=== PATIENT | female | born 1930 | race Caucasian/White ===

== ENCOUNTER → 2017-11-06 | Outpatient (CLI) | payer MEDICARE, BC ==
[~2017-11-06] MED LIST: ALBUTEROL0.83 MG/ML IH; ASPIRIN 81M81 MG/TA2 PO; ATROVENT I0.2 MG/1 M IH; BYSTOLIC20 MG PO; CENTRUM SILVER1 TA2 PO; LASIX 20MG TABL20 MG PO; LIPITOR20 MG PO; PRILOTC PO
== END ==
LOC: COL.VAS 11:00
DX: I37.1 Nonrheumatic pulmonary valve insufficiency (principal); J44.9 Chronic obstructive pulmonary disease, unspecified

== ENCOUNTER 2018-03-11 10:50 | Emergency (ER) | payer MEDICARE, BC ==
[~2018-03-11] VITALS: Ht 157.5 cm; Wt 51.8 kg
[2018-03-11] MEDS ORDERED: ULTRAM 50MG TAB50 MG PO (10:54)
[2018-03-11] MEDS ORDERED: LUTEIN20 M1 PO (10:55)
[2018-03-11] MEDS ORDERED: TYLENOL W/COD1 UDTAB PO (10:55)
[2018-03-11 10:56] VITALS: TEMP 97.8
[2018-03-11] MEDS ORDERED: KLOR-CON 1010 MEQ PO (10:57)
[2018-03-11 11:20] LABS: BASO % 0.4 % (0.0-2.0); EOS # 0.1 (0.0-0.7); EOS % 0.9 % (0-4.0); GRAN # 4.8 (1.4-6.5); GRAN % 70.5 % (42.2-75.2); HEMOGLOBIN 12.4 g/dl (12.5-16.0); LYMPH # 1.1 (1.2-3.4); LYMPH % 16.4 % (20.0-51.0); MEAN CELL VOLUME 85 fl (80.0-100.0); MEAN CORPUSCULAR HEMOGLOBIN 26 pg (27.0-31.0); MEAN CORPUSCULAR HGB CONC 31 g/dl (33.0-37.0); MEAN PLATELET VOLUME 11.1 fl (7.4-10.4); MONO # 0.8 (0.1-0.6); MONO % 11.7 % (1.7-9.3); PLATELET COUNT 183 K/mm3 (130-400); RED BLOOD COUNT 4.72 M/mm3 (4.10-5.30); REDCELL DISTRIBUTION WIDTH-CV 13.7 % (11.5-14.5)
[2018-03-11 11:27] LABS: PARTIAL THROMBOPLASTIN TIME 31.5 SECONDS (26.0-37.0)
[2018-03-11 11:32] LABS: ALBUMIN 4.2 gm/dL (3.5-5.0); BILIRUBIN,TOTAL 0.4 mg/dL (0.0-1.0); CALCIUM 9.3 mg/dL (8.4-10.2); CREATININE, serum 0.99 mg/dL (0.52-1.25); POTASSIUM 4.2 mmol/L (3.4-5.0); TOTAL PROTEIN 8.3 gm/dL (6.4-8.2)
[2018-03-11 11:34] LABS: ARTERIAL BLD GAS O2 SATURATION 97.4 % (92-100); ARTERIAL BLD GAS TCO2 CT 31.9; ARTERIAL BLOOD GAS BASE EXCESS 5.4 (-2-2); ARTERIAL BLOOD GAS HCO3 30.5 meq/L (22-26); ARTERIAL BLOOD GAS PCO2 46.7 mmHg (35-45); ARTERIAL BLOOD GAS PO2 95.5 mmHg (80-100); ARTERIAL BLOOD GAS pH 7.43 (7.35-7.45)
[2018-03-11 11:42] LABS: TROPONIN-I 0.023 ng/mL (0.000-0.034)
[2018-03-11 14:15] VITALS: BP 126/78; PULSE 88
== END 2018-03-11 14:17 | disposition home or self-care (01) ==
LOC: COL.ER 10:50
PROVIDERS: Family Medicine
DX: J44.1 Chronic obstructive pulmonary disease with (acute) exacerbation (principal); I10 Essential (primary) hypertension; E78.5 Hyperlipidemia, unspecified; Z79.82 Long term (current) use of aspirin

== ENCOUNTER 2019-01-08 20:45 | Inpatient (IN) | payer MEDICARE, BC ==
[~2019-01-08] VITALS: Ht 157.5 cm; Wt 67.4 kg
[~2019-01-08 20:45] MED LIST changes: +KLOR-CON 1010 MEQ PO; +LUTEIN20 M1 PO; +TYLENOL W/COD1 UDTAB PO; +ULTRAM 50MG TAB50 MG PO
[2019-01-08 21:48] LABS: BASO % 0.3 % (0.0-2.0); EOS # 0.1 (0.0-0.7); EOS % 1.3 % (0-4.0); GRAN # 7.3 (1.4-6.5); GRAN % 75.1 % (42.2-75.2); HEMATOCRIT 37.6 % (37.0-47.0); LYMPH # 1.4 (1.2-3.4); LYMPH % 14.4 % (20.0-51.0); MEAN CELL VOLUME 80 fl (80.0-100.0); MEAN CORPUSCULAR HEMOGLOBIN 24 pg (27.0-31.0); MEAN CORPUSCULAR HGB CONC 29 g/dl (33.0-37.0); MEAN PLATELET VOLUME 10.3 fl (7.4-10.4); MONO # 0.8 (0.1-0.6); MONO % 8.2 % (1.7-9.3); PLATELET COUNT 153 K/mm3 (130-400); PROTHROMBIN TIME 11.9 SECONDS (9.7-12.8); RED BLOOD COUNT 4.68 M/mm3 (4.10-5.30); REDCELL DISTRIBUTION WIDTH-CV 15.7 % (11.5-14.5)
[2019-01-08 21:52] LABS: ALBUMIN 3.8 gm/dL (3.5-5.0); BILIRUBIN,TOTAL 0.2 mg/dL (0.0-1.0); CALCIUM 9.3 mg/dL (8.4-10.2); CREATININE, serum 0.98 (0.52-1.25); POTASSIUM 4.6 mmol/L (3.4-5.0); TOTAL PROTEIN 7.5 gm/dL (6.4-8.2)
[2019-01-08] MEDS ORDERED: ZIAC 10/6.25M1 UDTAB PO (22:31)
--- NOTE | 2019-01-08 23:15 | NUR ---
Increased Nitro gtt due to chest pain. Please see pain assessment.
--- NOTE | 2019-01-08 23:45 | NUR ---
Pt report received by Stacy Ireland RN in ED.
[2019-01-09] VITALS (806 sets, daily range): BP systolic 70–166; BP diastolic 43–84; PULSE 98–129; TEMP 97.6–98.9; O2SAT 79–100
--- NOTE | 2019-01-09 00:15 | NUR ---
Pt assisted over X1 staff member with family in the waiting room. Pt in street clothes at this time. X3 staff members assisted pt into ICU bed 06 via slide board and assisted with changing pt into hospital gown. Pts aggitation increased with attempts to put support band across chest for fx shoulder. Pt started to scream at staff members and reported "I cant breathe". Orders for Morphine per emar was administered for reported pain prior to transfer into ICU bed from [facility]. Pt currently has glasses in place. Pt refused placement of catheter at this time and reported to nurse "we can put it in when I have to pee." Pt was notified of bedpan as an option and pt stated "I dont think I can use that". Assessment was completed. Family members notified that pt is requesting to see them although goodbyes were said and family went home after review of visiting hours, no castillo allowed on the unit and phone numbers of family obtained.
[2019-01-09 02:14] LABS: ARTERIAL BLD GAS O2 SATURATION 84.2 % (92-100); ARTERIAL BLD GAS TCO2 CT 35.1; ARTERIAL BLOOD GAS BASE EXCESS 6.6 (-2-2); ARTERIAL BLOOD GAS HCO3 33.3 meq/L (22-26); ARTERIAL BLOOD GAS PCO2 58.7 mmHg (35-45); ARTERIAL BLOOD GAS pH 7.37 (7.35-7.45)
--- NOTE | 2019-01-09 05:07 | NUR ---
PT PLACED ON BIPAP AND IS FINALLY SETTLING DOWN. WILL REPEATE A BLOOD GAS AN HOUR FROM NOW IF PATIENT LEAVES MASK ON AND DOESN'T CONTINUE TO HAVE BIG LEAKS WITH THE BIPAP. PT SEEMS TO BE MIHAI WELL AND IS ON THE DOCUMENTED SETTINGS. PT IS SATTING 100% ON 40% FI02. PT ON A SMALL MASK AND HUMIDIFICATION HAS BEEN APPLIED. WILL CONTINUE TO MONITOR AND ASSESS PATIENT. RN HAS BEEN NOTIFIED THAT BIPAP IS ON AND THAT ABG WILL BE REPEATED AT THIS TIME/
[2019-01-09 05:28] LABS: COLLECTION METHOD CLEAN CATCH
[2019-01-09 05:36] LABS: HEMOGLOBIN 10.1 g/dl (12.5-16.0); MEAN CELL VOLUME 81 fl (80.0-100.0); MEAN CORPUSCULAR HEMOGLOBIN 24 pg (27.0-31.0); MEAN CORPUSCULAR HGB CONC 29 g/dl (33.0-37.0); MEAN PLATELET VOLUME 11.7 fl (7.4-10.4); PLATELET COUNT 110 K/mm3 (130-400); RED BLOOD COUNT 4.27 M/mm3 (4.10-5.30); REDCELL DISTRIBUTION WIDTH-CV 15.9 % (11.5-14.5)
[2019-01-09 05:37] LABS: HEMATOCRIT 34.7 % (37.0-47.0)
[2019-01-09 05:40] LABS: ALBUMIN 3.5 gm/dL (3.5-5.0); BILIRUBIN,TOTAL 0.4 mg/dL (0.0-1.0); CALCIUM 8.7 mg/dL (8.4-10.2); CREATININE, serum 0.77 (0.52-1.25); POTASSIUM 4.2 mmol/L (3.4-5.0); TOTAL PROTEIN 6.9 gm/dL (6.4-8.2)
[2019-01-09 05:45] LABS: MUCOUS Present /lpf; PH 6 (5-8); SQUAMOUS EPITHELIAL None Seen /hpf; URINE APPEARANCE Clear; URINE BACTERIA None Seen /hpf; URINE BILIRUBIN Negative (NEGATIVE); URINE BLOOD Negative (NEGATIVE); URINE COLOR Yellow; URINE GLUCOSE Negative (NEGATIVE); URINE KETONE Negative (NEGATIVE); URINE LEUKOCYTE ESTERASE Negative (NEGATIVE); URINE NITRATE Negative (NEGATIVE); URINE PROTEIN(semi-quant) Negative (NEGATIVE); URINE RBC 0-2 /hpf; URINE UROBILINOGEN Negative (NEGATIVE)
[2019-01-09 05:47] LABS: PRE ALBUMIN 15.8 mg/dL (17.6-36.0)
[2019-01-09 05:52] LABS: PROTHROMBIN TIME 12.2 SECONDS (9.7-12.8)
[2019-01-09 06:23] LABS: ANISOCYTOSIS 1+; BAND 13 % (0-10); HYPOCHROMIA 2+; METAMYELOCYTE 1 % (0-0); NEUTROPHILS 76 % (42.0-75.2); PLATELET ESTIMATE DECREASED (NORMAL)
[2019-01-09 06:24] LABS: OVALOCYTES 1+
--- NOTE | 2019-01-09 07:11 | NUR ---
Bedside report received from GHISLAINE Diaz.
--- NOTE | 2019-01-09 07:20 | NUR ---
Morphine given as ordered by GHISLAINE Diaz for pain 04/21, patient repositioned at this time.
--- NOTE | 2019-01-09 07:55 | NUR ---
Sling applied to patient left arm, ice packs remain in place.
--- NOTE | 2019-01-09 08:03 | NUR ---
Spoke with pts daughter in lawara on the phone to review medication list. Pt is independent with taking care of medications at home so family member was able to provide medication list off the bottles available although reports that pt fills medications at the end of the month so unsure which ones will need to be refilled with no pill bottles available. Also knows that there were some medication changes present at last cardiology appt and is unsure which medications were affected.
--- NOTE | 2019-01-09 08:10 | NUR ---
Assessment performed, patient refused to allow this RN to take her socks off to assess her feet and place saurav hose on, patient also will not allow me to assess her backside. Bed alarm on for patient safety, fall precautions in place. Call light within reach.
[2019-01-09] MEDS ORDERED: PULMICORT0.5 MG/2 M IH (08:11)
[2019-01-09] MEDS ORDERED: ATACAND 16M16 MG/TAB PO (08:11)
[2019-01-09 08:29] LABS: ARTERIAL BLD GAS O2 SATURATION 88.3 % (92-100); ARTERIAL BLOOD GAS BASE EXCESS 8.4 (-2-2); ARTERIAL BLOOD GAS HCO3 35.1 meq/L (22-26); ARTERIAL BLOOD GAS PCO2 59.5 mmHg (35-45); ARTERIAL BLOOD GAS PO2 57.2 mmHg (80-100); ARTERIAL BLOOD GAS pH 7.39 (7.35-7.45)
--- NOTE | 2019-01-09 09:00 | NUR ---
Patient refused chest xray at this time, Dr. Hope aware.
--- NOTE | 2019-01-09 09:24 | NUR ---
Patient resting quietly in bed, call light within reach.
--- NOTE | 2019-01-09 09:57 | NUR ---
wind technician back to attempt chest xray at this time.
--- NOTE | 2019-01-09 10:17 | NUR ---
Family at bedside.
--- NOTE | 2019-01-09 11:05 | NUR ---
Dr. Casillas speaks with family regarding plan of care.
--- NOTE | 2019-01-09 11:10 | NUR ---
Phone consent received from son "Mehrdad" for surgery.
--- NOTE | 2019-01-09 12:12 | NUR ---
Patient taken to OR via bed, spoke with SUZANNE Marquez" on phone at this time, she states they will be back in 20 minutes.
--- NOTE | 2019-01-09 15:30 | NUR ---
Family at bedside. Patient awakens to name.
[2019-01-09 15:34] LABS: ARTERIAL BLD GAS TCO2 CT 29.2; ARTERIAL BLOOD GAS BASE EXCESS 3.2 (-2-2); ARTERIAL BLOOD GAS HCO3 27.8 meq/L (22-26); ARTERIAL BLOOD GAS PCO2 42.9 mmHg (35-45); ARTERIAL BLOOD GAS PO2 119.4 mmHg (80-100); ARTERIAL BLOOD GAS pH 7.43 (7.35-7.45)
--- NOTE | 2019-01-09 15:50 | NUR ---
Patient transferred to ICU# 6 via bed from PACU, intubated, with Jose Raul,RN, Nelsy,RN and MARITA Washburn at bedside. Rt at bedside placed patient on ventilator, assessment complete, left hip dressing CDI, ice pack applied to left hip, left arm remains in sling, ice pack applied to left shoulder. Matti hose applied, SCD's in place. Soft wrist restraint applied to right wrist. 14f OG placed, 60cm at lip to LIS. Patient became hypotensive, Dr. Cardona was called, new orders received.
--- NOTE | 2019-01-09 19:00 | NUR ---
Bedside report received from Amarilys Staley RN. Pt resting in bed on the ventilator at this time. Will open eyes to name and follow commands. Vent and OG tubes with IV pumps checked at this time.
--- NOTE | 2019-01-09 19:11 | NUR ---
Bedside report given to GHISLAINE Diaz, all lines/tubes and gtts verified at this time.
[2019-01-10] VITALS (1014 sets, daily range): BP systolic 79–123; BP diastolic 43–65; PULSE 84–127; TEMP 98.7–100.1; O2SAT 73–100
--- NOTE | 2019-01-10 05:00 | NUR ---
Not completing a sedation vacation due to pt being off sedation earlier this shift due to low BP.
--- NOTE | 2019-01-10 05:06 | NUR ---
NOT BEING DONE PT HAS NOT BEEN INTUBATED FOR 24 HOURS OR LONGER.
[2019-01-10 05:15] LABS: MEAN CELL VOLUME 81 fl (80.0-100.0); MEAN CORPUSCULAR HGB CONC 30 g/dl (33.0-37.0); MEAN PLATELET VOLUME 11.7 fl (7.4-10.4); PLATELET COUNT 113 K/mm3 (130-400); RED BLOOD COUNT 3.06 M/mm3 (4.10-5.30)
[2019-01-10 05:16] LABS: HEMATOCRIT 24.7 % (37.0-47.0); HEMOGLOBIN 7.3 g/dl (12.5-16.0); MEAN CORPUSCULAR HEMOGLOBIN 24 pg (27.0-31.0)
[2019-01-10 05:26] LABS: ALBUMIN 3.1 gm/dL (3.5-5.0); BILIRUBIN,TOTAL 0.2 mg/dL (0.0-1.0); CALCIUM 8.4 mg/dL (8.4-10.2); CREATININE, serum 1.26 (0.52-1.25); POTASSIUM 4.1 mmol/L (3.4-5.0); TOTAL PROTEIN 5.9 gm/dL (6.4-8.2)
[2019-01-10 05:39] LABS: ARTERIAL BLD GAS O2 SATURATION 97.8 % (92-100); ARTERIAL BLD GAS TCO2 CT 26.8; ARTERIAL BLOOD GAS HCO3 25.7 meq/L (22-26); ARTERIAL BLOOD GAS PCO2 36.3 mmHg (35-45); ARTERIAL BLOOD GAS PO2 116.9 mmHg (80-100); ARTERIAL BLOOD GAS pH 7.47 (7.35-7.45)
[2019-01-10 05:46] LABS: BAND 11 % (0-10); LYMPHOCYTE 3 % (20.0-51.0); NEUTROPHILS 82 % (42.0-75.2); PLATELET ESTIMATE NORMAL (NORMAL)
[2019-01-10 05:47] LABS: HYPOCHROMIA 1+; OVALOCYTES 1+
--- NOTE | 2019-01-10 07:00 | NUR ---
Bedside report provided to Diana Viera RN & Parul SCANLON. IV pumps assessed.
--- NOTE | 2019-01-10 07:34 | NUR ---
PT RECEIVED ON PREVIOUSLY DOCUMENTED SETTINGS. DECREASED FIO2 TO 30%; NO ADDITIONAL CHANGES MADE AT THIS TIME. PT DID WAKE UP DURING SUCTIONING AND ORAL CARE. PT PERFORMED A NIF WITH A -16 ON FIRST ATTEMPT. VITAL SIGNS STABLE. BBSH CLEAR WITH SLIGHTLY COARSE BASES. NO SVN INDICATED AT THIS TIME.
--- NOTE | 2019-01-10 10:52 | NUR ---
WANDA met with patient's son's, Erick. Patient currently lives at home with Mehrdad and his , Esperanza. Patient's PCP is Dr Burns and she obtains prescriptions from [facility]. Patient uses a walker and O2 at home. No home health services are reported. Patient had surgery to repair her fractured hip and is currently intubated. Tacos and Mehrdad met with Dr Arceo this morning. If patient does not progress by Thursday, she will likely get a trach and peg tube placed early next week. Patient's family understands if this happens, patient will likely be transfered to an LTACH. SW did discuss options if patient is starts to show progress and is able to be extubated. SW reported that if patient is medically cleared to discharge from the hospital, she will likely require post acute rehab in a facility. SW explained the difference between SNF and IPR. Patient's family reports that if she is able to discharge to a post acute rehab facility, she will likely need to go to a fpc because they do not feel that patient would be able to handle 3 hours of therapy 5 days a week. Patient's family also inquired what would happen if patient was not able to hanle any type of post acute rehab and she needed to be placed in a fpc care facility. SW reported that LTC is an option as well but patient's insurance does not cover LTC. WANDA reported that if patient's able, a financial counselor can visit with patient and family to complete a Medicaid application. SW answered all of patient's sons questions and also provided her phone number if they have any questions in the future. Patient's son also reported that patient have a DPOA-HC and Dr Hernandes office has a copy. WANDA requested Dr Hernandes office fax the DPOA-HC for patient's chart. SW will continue to follow and assist with any discharge needs.
[2019-01-10 11:53] LABS: MAGNESIUM 1.7 mg/dL (1.6-2.3); PHOSPHOROUS 2.4 mg/dL (2.5-4.5)
--- NOTE | 2019-01-10 13:20 | NUR ---
INCREASED FIO2 AT THIS TIME DUE TO A DROP IN SPO2.
--- NOTE | 2019-01-10 15:50 | NUR ---
WANDA rec'd a voicemail from Dr Burns's nurse, Aleah. She reported they do not have a copy of the DPOA-HC on file. WANDA contacted patient's son Mehrdad. He reports he will bring a copy to the hospital for patient's chart.
[2019-01-10 16:41] LABS: ARTERIAL BLD GAS O2 SATURATION 97.6 % (92-100); ARTERIAL BLD GAS TCO2 CT 30.4; ARTERIAL BLOOD GAS BASE EXCESS 5.2 (-2-2); ARTERIAL BLOOD GAS HCO3 29.2 meq/L (22-26); ARTERIAL BLOOD GAS PCO2 40.4 mmHg (35-45); ARTERIAL BLOOD GAS PO2 110.1 mmHg (80-100); ARTERIAL BLOOD GAS pH 7.48 (7.35-7.45)
[2019-01-10 16:52] LABS: HEMATOCRIT 20.8 % (37.0-47.0); HEMOGLOBIN 6.5 g/dl (12.5-16.0)
--- NOTE | 2019-01-10 17:15 | NUR ---
DECREASED FI02 AT THIS TIME FROM 45% TO 40% DUE TO 100% SPO2
--- NOTE | 2019-01-10 17:43 | NUR ---
PT IS IN PAV+ MODE WITH 70% WORKLOAD AT THIS TIME. DR. PHELPS AT BEDSIDE.
--- NOTE | 2019-01-10 19:00 | NUR ---
Bedside report received from Diana Viera RN. Pts son and daughter in law at bedside during this time.
[2019-01-11] VITALS (829 sets, daily range): BP systolic 86–147; BP diastolic 43–81; PULSE 73–110; TEMP 97.5–100.1; O2SAT 88–100
--- NOTE | 2019-01-11 03:21 | NUR ---
Increased TF to 25 ml/hr per order.
[2019-01-11 05:42] LABS: MEAN CELL VOLUME 80 fl (80.0-100.0); MEAN CORPUSCULAR HGB CONC 31 g/dl (33.0-37.0); MEAN PLATELET VOLUME 11.6 fl (7.4-10.4); PLATELET COUNT 89 K/mm3 (130-400); RED BLOOD COUNT 3.35 M/mm3 (4.10-5.30)
[2019-01-11 05:44] LABS: HEMATOCRIT 26.8 % (37.0-47.0); HEMOGLOBIN 8.4 g/dl (12.5-16.0); MEAN CORPUSCULAR HEMOGLOBIN 25 pg (27.0-31.0)
[2019-01-11 05:52] LABS: ARTERIAL BLD GAS O2 SATURATION 97.1 % (92-100); ARTERIAL BLOOD GAS BASE EXCESS 1.8 (-2-2); ARTERIAL BLOOD GAS HCO3 26.6 meq/L (22-26); ARTERIAL BLOOD GAS PCO2 42.8 mmHg (35-45); ARTERIAL BLOOD GAS PO2 105.7 mmHg (80-100); ARTERIAL BLOOD GAS pH 7.41 (7.35-7.45)
[2019-01-11 05:56] LABS: CALCIUM 8.2 mg/dL (8.4-10.2); CREATININE, serum 1.09 (0.52-1.25); MAGNESIUM 1.9 mg/dL (1.6-2.3); POTASSIUM 4.9 mmol/L (3.4-5.0)
[2019-01-11 06:14] LABS: ANISOCYTOSIS 1+; BAND 12 % (0-10); HYPOCHROMIA 1+; LYMPHOCYTE 1 % (20.0-51.0); NEUTROPHILS 82 % (42.0-75.2); PLATELET ESTIMATE DECREASED (NORMAL)
[2019-01-11 06:15] LABS: MICROCYTOSIS 1+; OVALOCYTES 1+
--- NOTE | 2019-01-11 07:25 | NUR ---
Bedside report received from GHISLAINE Diaz.
--- NOTE | 2019-01-11 07:30 | NUR ---
Bedside report provided to Amarilys Staley RN.
--- NOTE | 2019-01-11 08:10 | NUR ---
PT ON PAV+ INITIALLY STARTED AT 70% DECRESED TO 60% PER DR PHELPS
--- NOTE | 2019-01-11 08:46 | NUR ---
Dr. Arceo here to talk with family.
--- NOTE | 2019-01-11 08:56 | NUR ---
Tube feeds turned off at this time, Propofol gtt turned off at this time.
--- NOTE | 2019-01-11 09:30 | NUR ---
SW attended clinical rounds. Patient will be extubated today. SW will continue to follow.
[2019-01-11 10:01] LABS: ARTERIAL BLD GAS O2 SATURATION 98.3 % (92-100); ARTERIAL BLOOD GAS HCO3 28.6 meq/L (22-26); ARTERIAL BLOOD GAS PCO2 43.5 mmHg (35-45); ARTERIAL BLOOD GAS pH 7.44 (7.35-7.45)
[2019-01-11 10:05] LABS: ARTERIAL BLOOD GAS PO2 137.3 mmHg (80-100)
--- NOTE | 2019-01-11 10:27 | NUR ---
Patient extubated to 3L/NC, sats 94%.
--- NOTE | 2019-01-11 10:27 | NUR ---
ABG RESULTS GIVEN TO DR. PHELPS. PT HAS BEEN ON CPAP TRIAL FOR MOST OF MORNING. ORDER TO EXTUBATE GIVEN. PT EXTUBATED TO 3LNC. PT SUCTIONED PRIOR TO EXTUBATION FOR MODERATE AMOUNT OF THICK ANNE/BEIGE SECRETIONS. NO STRIDOR AUSCULTATED. NO DISTRESS NOTED AT THIS TIME.
--- NOTE | 2019-01-11 10:45 | NUR ---
Patient self suctions with timo.
--- NOTE | 2019-01-11 13:00 | NUR ---
PT in to work with patient.
--- NOTE | 2019-01-11 14:00 | NUR ---
Patient continues to self suction, leaves marieuer in mouth, even after continued discussion that is making her mouth dry and bloody.
--- NOTE | 2019-01-11 14:15 | NUR ---
Patient with increased anxiety, sats 88%, O2 increased to 5L/NC. Patient requesting "something for anxiety." Dr. Arceo was called, new orders received.
--- NOTE | 2019-01-11 14:25 | NUR ---
Ativan po given, patient coughs and sputters with water given. Dr. Arceo notified, orders for speech consult received.
--- NOTE | 2019-01-11 15:42 | NUR ---
ST Fernanda in room for assessment.
--- NOTE | 2019-01-11 15:56 | NUR ---
Speech therapy here, patient coughs after each ice chip given, recommend continue NPO, and reevaluate tomorrow.
--- NOTE | 2019-01-11 16:05 | NUR ---
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
--- NOTE | 2019-01-11 16:32 | NUR ---
Family at bedside, update given on speech eval.
--- NOTE | 2019-01-11 19:17 | NUR ---
Bedside report given to GHISLAINE Armstrong.
--- NOTE | 2019-01-11 19:36 | NUR ---
RECEIVED REPORT FROM GHISLAINE GARCIA.
--- NOTE | 2019-01-11 22:00 | NUR ---
gave patient a bed bath. patient refused to change her gown and bed linens. patient was upset and agitated. gave patient a few minutes to collect her self and calm down before proceeding with nightly cares.
[2019-01-12] VITALS (763 sets, daily range): BP systolic 116–157; BP diastolic 49–75; PULSE 70–122; TEMP 97.6–98.6; O2SAT 75–100
[2019-01-12 05:46] LABS: MEAN CELL VOLUME 79 fl (80.0-100.0); MEAN CORPUSCULAR HGB CONC 31 g/dl (33.0-37.0); MEAN PLATELET VOLUME 11.1 fl (7.4-10.4); PLATELET COUNT 115 K/mm3 (130-400); RED BLOOD COUNT 3.54 M/mm3 (4.10-5.30); REDCELL DISTRIBUTION WIDTH-CV 16.1 % (11.5-14.5)
[2019-01-12 05:49] LABS: HEMOGLOBIN 8.8 g/dl (12.5-16.0); MEAN CORPUSCULAR HEMOGLOBIN 25 pg (27.0-31.0)
[2019-01-12 06:05] LABS: CALCIUM 8.4 mg/dL (8.4-10.2); CREATININE, serum 0.66 (0.52-1.25); MAGNESIUM 1.9 mg/dL (1.6-2.3); PHOSPHOROUS 2.5 mg/dL (2.5-4.5)
[2019-01-12 06:06] LABS: BAND 11 % (0-10); LYMPHOCYTE 4 % (20.0-51.0); METAMYELOCYTE 1 % (0-0); NEUTROPHILS 83 % (42.0-75.2)
[2019-01-12 06:08] LABS: ANISOCYTOSIS 1+; HYPOCHROMIA 1+
[2019-01-12 06:09] LABS: OVALOCYTES 1+
--- NOTE | 2019-01-12 07:03 | NUR ---
gave report to gilberto gilbert.
--- NOTE | 2019-01-12 07:20 | NUR ---
Bedside report received from GHISLAINE Armstrong.
--- NOTE | 2019-01-12 07:30 | NUR ---
Eri, ST here to assess patient.
--- NOTE | 2019-01-12 10:06 | NUR ---
PT here to work with patient.
--- NOTE | 2019-01-12 11:13 | NUR ---
SW attended clinical rounds. Patient is doing well and will move upstairs to the surgical floor later today. SW met with patient about post acute rehab. SW explained SNF vs IPR. Patient would like to review medicare.gov resource list before signing a choice form. SW inquired if patient would like SW to speak with her son about options. Patient reported she does not want SW to contact her son at this time. SW will follow up with patient later today.
--- NOTE | 2019-01-12 11:17 | NUR ---
Fernanda,Speech therapy in working with patient.
--- NOTE | 2019-01-12 12:32 | NUR ---
WANDA met with patient and son, Mehrdad, about post acute rehab choices. Patient and son chose 1. I[facility] and 2. [facility]. Choice form was signed by Mehrdad per patient request. WANDA informed [facility] director and contacted and faxed referral to [facility].
--- NOTE | 2019-01-12 14:38 | NUR ---
PT in working with patient.
--- NOTE | 2019-01-12 15:30 | NUR ---
Patient resting quietly in bed with eyes closed, respirations even and non-labored, call light within reach.
--- NOTE | 2019-01-12 18:10 | NUR ---
Patient sitting up in bed, eating dinner.
--- NOTE | 2019-01-12 19:51 | NUR ---
Bedside report given to GHISLAINE Duke.
[2019-01-13] VITALS (359 sets, daily range): BP systolic 126–145; BP diastolic 59–74; PULSE 60–77; TEMP 97.9–98.3; O2SAT 92–100
--- NOTE | 2019-01-13 01:30 | NUR ---
Requesting a snack; provided chocolate pudding and ate 100%. Coughed a few times after finishing. Able to use the oral suction independently when needed and no further issues noted. Offered to reposition at this time. Stated that she was comfortable and did not wish to reposition. Will continue to monitor.
--- NOTE | 2019-01-13 04:26 | NUR ---
Resting in bed with eyes shut; no concerns at this time.
[2019-01-13 05:52] LABS: GRAN # 7.8 (1.4-6.5); GRAN % 87.1 % (42.2-75.2); LYMPH # 0.3 (1.2-3.4); LYMPH % 3.8 % (20.0-51.0); MEAN CELL VOLUME 81 fl (80.0-100.0); MEAN CORPUSCULAR HGB CONC 31 g/dl (33.0-37.0); MEAN PLATELET VOLUME 10.9 fl (7.4-10.4); MONO # 0.8 (0.1-0.6); MONO % 8.7 % (1.7-9.3); PLATELET COUNT 148 K/mm3 (130-400); RED BLOOD COUNT 3.34 M/mm3 (4.10-5.30); REDCELL DISTRIBUTION WIDTH-CV 16.8 % (11.5-14.5)
[2019-01-13 05:55] LABS: HEMATOCRIT 27.1 % (37.0-47.0); HEMOGLOBIN 8.4 g/dl (12.5-16.0); MEAN CORPUSCULAR HEMOGLOBIN 25 pg (27.0-31.0)
[2019-01-13 06:11] LABS: CALCIUM 8.3 mg/dL (8.4-10.2); CREATININE, serum 0.82 (0.52-1.25); POTASSIUM 4.6 mmol/L (3.4-5.0)
--- NOTE | 2019-01-13 08:00 | NUR ---
Shift assessment complete at this time. Plan of care reviewed at bedside with patient. Additional time taken to address any other needs or concerns. Bed in low position, call light within reach. Denies pain or any other discomfort. Vitals stable at this time. Will continue to monitor.
--- NOTE | 2019-01-13 13:05 | NUR ---
Received patient per bed from ICU. O2 on at 3L/ nasal cannula. Denies pain. Left arm in sling. Left hip aquacell dressing CDI. CMS intact.
--- NOTE | 2019-01-13 14:45 | NUR ---
[place] given for c/o back pain. Repositioned in bed with assist.
--- NOTE | 2019-01-13 18:00 | NUR ---
Denies need to void. Denies pain. Repositioned in bed. Family here.
--- NOTE | 2019-01-13 19:00 | NUR ---
REPORT RECEIVED FROM CATRACHO MOMIN RN. PT A&O BUT VERY GRUMPY. HX COPD. HOB ELEVATED. O2 3LNC. SL LABORED RESP. ASKING FOR A RT TX. CALLED RT. LT ARM READJUSTED IN SLING TO PROPER PLACEMENT. PT HISSES AND YELLS OUT. ALLOWED PT TO CALM. PILLOWS UNDER LT ARM FOR SUPPORT. RADIAL PULSE PRESENT. BRUISING AND SWELLING NOTED. DENIED NEED FOR PAIN MED. PT HAS NOT VOIDED SINCE F/C DC'D EARLIER TODAY. PT DENIES FULL BLADDER AT THIS TIME. CALL LIGHT IN REACH. BED ALARM SET.
--- NOTE | 2019-01-13 20:36 | NUR ---
PT STATED SHE WAS FEELING SHORT OF BREATH AND CALLED RN FOR A PRN BREATHING TREATMENT. THEREFORE A PRN DUONEB WAS GIVEN AND PT IS FINE AND MIHAI WELL WITH NO DISTRESS NOTED. WILL CONTINUE TO MONITOR AND ASSESS PT.
--- NOTE | 2019-01-13 20:48 | NUR ---
PT RECEIVED RT TX. AGREED TO PAIN MED. GAVE NORCO 1. MEDS CRUSHED IN PUDDING. PT RELATED RT TX WAS NOT EFFECTIVE. NOTIFIED RT. WILL COME BACK AND PROVIDE ANOTHER TX. PT RELATES SHE MIGHT HAVE TO VOID AND BM. AGREED TO ALLOW PAIN MED START TO WORK AND 2 STAFF WOULD HELP TO BSC.
[2019-01-14 00:40] VITALS: BP 165/74; PULSE 70; TEMP 97.7
--- NOTE | 2019-01-14 04:23 | NUR ---
PT HAS RESTED WELL THIS SHIFT. O2 3LNC. BECOMES DYSPNEIC WITH ANY ACTIVITY BUT RECOVERS WITHI A FEW MINUTES.
[2019-01-14 04:54] VITALS: BP 160/70; PULSE 73; TEMP 98.1
[2019-01-14 06:07] LABS: BASO % 0.1 % (0.0-2.0); EOS # 0.1 (0.0-0.7); EOS % 1.3 % (0-4.0); GRAN # 7.6 (1.4-6.5); GRAN % 76.3 % (42.2-75.2); LYMPH # 0.8 (1.2-3.4); LYMPH % 7.8 % (20.0-51.0); MEAN CELL VOLUME 81 fl (80.0-100.0); MEAN CORPUSCULAR HGB CONC 30 g/dl (33.0-37.0); MEAN PLATELET VOLUME 11.7 fl (7.4-10.4); MONO # 1.4 (0.1-0.6); MONO % 13.8 % (1.7-9.3); PLATELET COUNT 184 K/mm3 (130-400); RED BLOOD COUNT 3.53 M/mm3 (4.10-5.30); REDCELL DISTRIBUTION WIDTH-CV 17.1 % (11.5-14.5)
--- NOTE | 2019-01-14 06:08 | NUR ---
PT UP WITH ASSIST TO BSC. HAD LG LOOSE BROWN STOOL AND INCON IN BED OF STOOL. SEE MAR FOR NORCO GIVEN FOR LT HIP PAIN. NEW MEPILEX PLACED TO UPPER BACK. STAGE 2 WOUND. COCYX HAS NO BREAKDOWN.
[2019-01-14 06:16] LABS: CALCIUM 8.3 mg/dL (8.4-10.2); CREATININE, serum 0.78 (0.52-1.25); MAGNESIUM 2.1 mg/dL (1.6-2.3); POTASSIUM 4.2 mmol/L (3.4-5.0)
[2019-01-14 06:26] LABS: HEMATOCRIT 28.7 % (37.0-47.0); HEMOGLOBIN 8.7 g/dl (12.5-16.0); MEAN CORPUSCULAR HEMOGLOBIN 25 pg (27.0-31.0)
[2019-01-14 08:48] VITALS: BP 141/61; PULSE 71; TEMP 97.8
--- NOTE | 2019-01-14 09:30 | NUR ---
Patient alert and oriented, answers questions appropriately. Agitated and uncomfortable this a.m. See assessment. LUE in sling, neuros intact, pulses palpable. Limited movement to LUE. LLE with neuros intact, pulses palpable. No c/o numbness or tingling to LLE. Incision to LLE with aquacel CDI. FWB. C/o pain 02/19 to LUE. No other c/o at this time.
--- NOTE | 2019-01-14 11:18 | NUR ---
[facility]-WANDA contacted [facility] Director and they are continuing to follow the pt's progress.
--- NOTE | 2019-01-14 11:19 | NUR ---
[facility]-WANDA contacted Dasha from [facility]. WANDA was informed [facility] would like to continue to follow the pt's progress. SW to fax updates. WADNA will continue to follow.
[2019-01-14 12:18] VITALS: BP 110/57; PULSE 63; TEMP 97.9
[2019-01-14] MEDS ORDERED: PULMICORT0.5 MG/2 M IH (13:32)
[2019-01-14] MEDS ORDERED: BROVANA15 MCG/2 M IH (13:33)
[2019-01-14 16:38] VITALS: BP 138/66; PULSE 80; TEMP 97.9
--- NOTE | 2019-01-14 19:15 | NUR ---
Pt resting with HOB elevated. Pt c/o L shoulder/hip pain 01/19. She is requesting PRN pain medication and repositioning. Respirations even and unlabored. Lungs clear, bases diminished. Abdomen soft, nontender. BS+. O2@3L via NC. Aquacell to L hip CDI. L arm sling in place. SCDS amd TEDS to BLE. CMS intact. Pedal pulses equal, 1+. No further needs at this time. Will continue to monitor.
--- NOTE | 2019-01-14 19:20 | NUR ---
HS and PRN meds given crushed in pudding. Well tolerated by patient. Pt repositioned to comfort. No futher needs noted.
[2019-01-14 19:30] VITALS: BP 130/57; PULSE 74; TEMP 97.3
[2019-01-15] VITALS (7 sets, daily range): BP systolic 109–145; BP diastolic 33–99; PULSE 56–89; TEMP 97.5–97.9
--- NOTE | 2019-01-15 02:15 | NUR ---
PT STATED THAT HER LUNGS FELT TIGHT AND THAT SHE NEEDED ANOTHER BREATHING TRTEATMENT AFTER HER SCHEDULED TREATMENT WAS OVER. PTS BREATH SOUNDS ARE CLEAR AND NO DISTRESS IS NOTED AT THIS TIME. WILL CONTINUE TO MONITOR AND ASSESS.
--- NOTE | 2019-01-15 05:30 | NUR ---
AM labs drawn from pts DANICA PICC line. PICC has great blood return. Pt denies needs this morning. Pt was up x1 to BSC last night.
[2019-01-15 05:51] LABS: BASO % 0.1 % (0.0-2.0); EOS # 0.2 (0.0-0.7); EOS % 2.4 % (0-4.0); GRAN # 6.2 (1.4-6.5); GRAN % 75.6 % (42.2-75.2); HEMATOCRIT 28.8 % (37.0-47.0); HEMOGLOBIN 8.6 g/dl (12.5-16.0); LYMPH # 0.7 (1.2-3.4); LYMPH % 8.6 % (20.0-51.0); MEAN CELL VOLUME 82 fl (80.0-100.0); MEAN CORPUSCULAR HEMOGLOBIN 25 pg (27.0-31.0); MEAN CORPUSCULAR HGB CONC 30 g/dl (33.0-37.0); MEAN PLATELET VOLUME 11.3 fl (7.4-10.4); MONO % 12.6 % (1.7-9.3); PLATELET COUNT 185 K/mm3 (130-400); REDCELL DISTRIBUTION WIDTH-CV 17.3 % (11.5-14.5)
[2019-01-15 06:00] LABS: CALCIUM 8.4 mg/dL (8.4-10.2); CREATININE, serum 0.75 (0.52-1.25); POTASSIUM 4.5 mmol/L (3.4-5.0)
--- NOTE | 2019-01-15 07:06 | NUR ---
Report from GHISLAINE Denton. Pt asleep in bed, even resps, eyes closed. O2@3L/NC. SCDs on. Head elevated at 30*. Yellow gown on.
--- NOTE | 2019-01-15 10:22 | NUR ---
WANDA faxed updates to [facility]. WANDA to continue to follow.
--- NOTE | 2019-01-15 11:08 | NUR ---
Notified pharmacy that pt had two orders for protonix and needs to take pills crushed in puree at this time. They changed order for granules; however, pt refuses to take with applejuice or applesauce. Pt amb to BR with one assist with gait belt, second person for standby assist. On O2/NC at 3LPM. Removed tele patches. Sling to LUE. Pt passing flatus. Aquacel dressing to L hip with minimal drainage, but top of dressing is peeling down. Pt took morning meds crushed in vanilla pudding. Assisted with ordering lunch, needed to make some food pureed as kitchen unable to provide mech soft.
--- NOTE | 2019-01-15 11:37 | NUR ---
PHILIP Floyd and this nurse assisted pt with clifton MCLEAN, new yellow gown, yellow gripper socks. Pt continent of B/B. Coccyx reddened but blanches. Replaced mepilex dressing to mid back of superficial opening approx 4 cm. Replaced surgical aquacel dressing as it was peeling off. Incision edges approximated with small amount of drainage. Steris peeled off with dressing. Pt alba well. Requested to return to chair. Positioned with pillows.
--- NOTE | 2019-01-15 15:28 | NUR ---
Hannah, at [facility], reports that they can accept the patient for a skilled stay. SW to inform the patient and will continue to follow.
--- NOTE | 2019-01-15 17:35 | NUR ---
Pt displeased with limits of [facility] soft diet, edu about diet order until cleared by Speech after swallow study Thursday. Assisted with ordering supper and breakfast for tomorrow, also sent pt's food likes to kitchen. Pt in bed with airmattress in place, SCDs and O2, call lt in reach, sling to RUE.
--- NOTE | 2019-01-15 18:18 | NUR ---
Encouraged pt to use IS, edu on proper technique but has difficulty with breathing too fast.
--- NOTE | 2019-01-15 19:13 | NUR ---
Report to GHISLAINE Soto.
[2019-01-16 04:15] VITALS: BP 146/51; PULSE 77; TEMP 97.6
--- NOTE | 2019-01-16 06:33 | NUR ---
Patient up to the chair after toileting this morning. States pain 7/10 and PRN [place] (2 tab) given. Relief noted. Patient stated she feels like she needs to have a bowel movement, but wasn't able to. She refused her HS stool softner last evening. Education provided on this. Will report off to day shift.
[2019-01-16 07:05] LABS: BASO % 0.1 % (0.0-2.0); EOS # 0.1 (0.0-0.7); GRAN # 8.4 (1.4-6.5); GRAN % 82.4 % (42.2-75.2); LYMPH # 0.7 (1.2-3.4); LYMPH % 6.8 % (20.0-51.0); MEAN CELL VOLUME 83 fl (80.0-100.0); MEAN CORPUSCULAR HGB CONC 30 g/dl (33.0-37.0); MEAN PLATELET VOLUME 10.4 fl (7.4-10.4); MONO # 0.9 (0.1-0.6); MONO % 8.6 % (1.7-9.3); PLATELET COUNT 193 K/mm3 (130-400); RED BLOOD COUNT 3.33 M/mm3 (4.10-5.30); REDCELL DISTRIBUTION WIDTH-CV 17.5 % (11.5-14.5)
[2019-01-16 07:09] LABS: CALCIUM 8.2 mg/dL (8.4-10.2); CREATININE, serum 0.71 (0.52-1.25); POTASSIUM 4.8 mmol/L (3.4-5.0)
[2019-01-16 07:29] LABS: HEMATOCRIT 27.6 % (37.0-47.0); HEMOGLOBIN 8.3 g/dl (12.5-16.0); MEAN CORPUSCULAR HEMOGLOBIN 25 pg (27.0-31.0)
--- NOTE | 2019-01-16 07:42 | NUR ---
Report from GHISLAINE Soto. Pt one assist to boost up in chair and requested to recline back slightly for eating, positioned back and LUE on pillows. SCDs to BLE, call lt in reach, O2/NC. Alert, [place], pleasant. Set up assist for breakfast. BLE elevated in recliner.
[2019-01-16 07:50] VITALS: BP 102/48; PULSE 80; TEMP 97.4
--- NOTE | 2019-01-16 11:07 | NUR ---
Pt took pills crushed in van pudding. Has anxiety around cares and taking pills and fear of pain from moving LUE, verbalizes that she appreciates taking time to explain things and being patient. C/o PT this morning not communicating with her, misunderstanding of not wanting to participate in PT today, but pt called and asked when PT would come back. F/u with PT and PT returned for treatment. Yellow gown and gripper socks in place. Mepilex to mid back intact, surgical aquacel dressing intact to L hip, scant shadowing, TEDS to BLE, had SCDs on in chair. Air mattress to bed. Pillows for comfort. O2 at 3LNC and SOA with any exertion. Had some coughing during med administration. LUE in sling, pt has good CMS.
[2019-01-16 11:18] VITALS: BP 122/41; PULSE 86; TEMP 97.8
--- NOTE | 2019-01-16 13:11 | NUR ---
Family and friends visiting. franc Mckenna and pillow and ice pack provided. SCDs in place. TEDS and yellow gripper socks in place. Bed alarm on.
[2019-01-16 15:46] VITALS: BP 137/54; PULSE 84; TEMP 97.9
--- NOTE | 2019-01-16 19:32 | NUR ---
Assisted pt with ordering meals for tomorrow. Report to GHISLAINE Denton. Pt was in bathroom toileting.
[2019-01-16 19:33] VITALS: BP 103/45; PULSE 81; TEMP 97.6
--- NOTE | 2019-01-16 19:50 | NUR ---
Pt sitting in chair. c/o pain 7/10 in L shoulder. No distress noted. Respirations even and unalbored. Lungs clear. Abdomen soft, nontender. BS+. Pt is ambulatory with 1-2 assist and hemiwalker. L hip incision clean dry intact with aquacell. L shoulder fx in sling. Mepilex to spine/back CDI. Will give PRN pain medications. Pt denies further needs.
--- NOTE | 2019-01-17 01:20 | NUR ---
Pt up to bathroom and back to bed with 2 min assist and hemiwalker. Medicated for pain 7/10 in L shoulder and back. Pts bottom is reddened. Pts back wiped down per patient request. SCDs replaced. No further needs.
[2019-01-17 01:25] VITALS: BP 135/66; PULSE 80; TEMP 98.3
[2019-01-17 03:58] VITALS: BP 157/62; PULSE 82; TEMP 98.6
--- NOTE | 2019-01-17 06:00 | NUR ---
Pt sleeping this AM. Easily arousable. Pt reports feeling better once she got comfortable in bed. Labs drawn via PICC line. Caps changed. Pt denies needs at this time.
[2019-01-17 06:21] LABS: ALBUMIN 2.6 gm/dL (3.5-5.0); BILIRUBIN,TOTAL 0.3 mg/dL (0.0-1.0); CALCIUM 8.3 mg/dL (8.4-10.2); CREATININE, serum 0.73 (0.52-1.25); PHOSPHOROUS 2.9 mg/dL (2.5-4.5); POTASSIUM 4.9 mmol/L (3.4-5.0); TOTAL PROTEIN 5.4 gm/dL (6.4-8.2)
[2019-01-17 06:28] LABS: PRE ALBUMIN 20.1 mg/dL (17.6-36.0)
[2019-01-17 08:00] VITALS: BP 127/41; PULSE 104; TEMP 97.4
--- NOTE | 2019-01-17 08:40 | NUR ---
Patient sitting up in recliner eating breakfast. Alert and oriented x 3. Shift assessment complete. Aquacell dressing to left hip is CDI. Left arm in sling. Patient ambulates with assistance of hemiwalker, x1 assist. States mild pain to left side, will call when she would like to take something for pain. Takes all meds crushed in applesauce. Denies further needs at this time.
[2019-01-17] MEDS ORDERED: IPRATROPIUM BROM3 M1 IH (08:51)
--- NOTE | 2019-01-17 09:47 | NUR ---
SW attended clinical rounding. Patient is ready to dc today. [facility] is unable to accept. SW faxed updates to [facility], they are able to accept patient today.
[2019-01-17] MEDS ORDERED: VITAMIN C500 MG PO (10:23)
[2019-01-17] MEDS ORDERED: ASPIRIN 32325 MG/TAB PO (10:34)
--- NOTE | 2019-01-17 10:40 | NUR ---
Contacted Cecilia CRUZ, verified patient will be going to [facility] with PICC line in place. Aliyah from PICC team in for dressing change
[2019-01-17] MEDS ORDERED: TYLENOL 325MG325 MG PO (10:41)
[2019-01-17] MEDS ORDERED: DULCOLAX S10 MG/SUPP RC (10:41)
[2019-01-17] MEDS ORDERED: MUCUS RELIEF400 M1 PO (10:41)
[2019-01-17] MEDS ORDERED: OSCAL 500 TAB500 MG PO (10:41)
[2019-01-17] MEDS ORDERED: ULTRAM 50MG TAB50 MG PO (10:42)
[2019-01-17] MEDS ORDERED: SENOKOT S 50 MG1 TAB PO (10:42)
[2019-01-17] MEDS ORDERED: NORCO 325 MG-51 TAB PO (10:42)
[2019-01-17] MEDS ORDERED: GOOD NEIGH1200 MG/15 PO (10:42)
--- NOTE | 2019-01-17 10:45 | NUR ---
PICC intact right upper arm. With sterile technique right upper arm PICC dressing change done with insertion site cleansed with ChloraPrep 1, chlorhexidine impregnated disc applied, skin prep, StatLock, and Tegaderm applied. No signs or symptoms of IV complications noted. No concerns voiced. Plan is for patient to be discharged to [facility] with PICC in place. Arm wrapped with Les to protect catheter.
[2019-01-17] MEDS ORDERED: PREDNISONE20 MG PO (11:15)
[2019-01-17] MEDS ORDERED: BD POSIFLUSH SF10 ML IV (11:20)
[2019-01-17 11:21] VITALS: BP 127/41; PULSE 104; TEMP 97.4
--- NOTE | 2019-01-17 11:40 | NUR ---
[facility] by [facility]. All questions answered. Contacted [facility] for report. Patient denies further needs at this time.
== END 2019-01-17 11:45 | DRG 469 ==
LOC: COL.ER 20:45 → SURG 21:45 → ICU 23:48 → SURG 01-13 13:05
PROVIDERS: Emergency Medicine; Internal Medicine; Internal Medicine Critical Care Medicine; Internal Medicine Pulmonary Disease; Nurse Practitioner; Nurse Practitioner Family; Orthopaedic Surgery; Physician Assistant; Student in an Organized Health Care Education/Training Program; ADMIT Hospitalist
PROC: 0SRS0J9 Replacement of Left Hip Joint, Femoral Surface with Synthetic Substitute, Cemented, Open Approach (ICD-10-PCS; principal; 2019-01-09 12:30)
PROC: 02HV33Z Insertion of Infusion Device into Superior Vena Cava, Percutaneous Approach (ICD-10-PCS; 2019-01-10)
DX: S72.002A Fracture of unspecified part of neck of left femur, initial encounter for closed fracture (principal); J96.21 Acute and chronic respiratory failure with hypoxia; J96.22 Acute and chronic respiratory failure with hypercapnia; S42.392A Other fracture of shaft of left humerus, initial encounter for closed fracture; J98.11 Atelectasis; J44.9 Chronic obstructive pulmonary disease, unspecified; I10 Essential (primary) hypertension; E78.5 Hyperlipidemia, unspecified; W18.30XA Fall on same level, unspecified, initial encounter; Y92.008 Other place in unspecified non-institutional (private) residence as the place of occurrence of the external cause; Z66 Do not resuscitate; D69.6 Thrombocytopenia, unspecified; K21.9 Gastro-esophageal reflux disease without esophagitis; I95.9 Hypotension, unspecified; F41.9 Anxiety disorder, unspecified; D64.9 Anemia, unspecified; K44.9 Diaphragmatic hernia without obstruction or gangrene; Z95.0 Presence of cardiac pacemaker; Z79.82 Long term (current) use of aspirin; Z99.81 Dependence on supplemental oxygen
CPT/HCPCS: 99222; 99223-AI; 99231-AI; 99232-AI; 99233-AI; 99239; A9284; C1751; C1776; J0360; J0690; J1100; J1650; J2250; J2270; J2370; J2405; J2704; J2920; J3010; J7030; J7040; J7120; J7512; P9016; P9047

== ENCOUNTER → 2019-02-11 | Outpatient (CLI) | payer MEDICARE, BC ==
[~2019-02-11] MED LIST changes: +ASPIRIN 32325 MG/TAB PO; +ATACAND 16M16 MG/TAB PO; +BD POSIFLUSH SF10 ML IV; +BROVANA15 MCG/2 M IH; +DULCOLAX S10 MG/SUPP RC; +GOOD NEIGH1200 MG/15 PO; +IPRATROPIUM BROM3 M1 IH; +MUCUS RELIEF400 M1 PO; +NORCO 325 MG-51 TAB PO; +OSCAL 500 TAB500 MG PO; +PREDNISONE20 MG PO; +PULMICORT0.5 MG/2 M IH; +SENOKOT S 50 MG1 TAB PO; +TYLENOL 325MG325 MG PO; +VITAMIN C500 MG PO; +ZIAC 10/6.25M1 UDTAB PO
== END ==
LOC: COL.VAS 02-09 11:15
DX: J44.9 Chronic obstructive pulmonary disease, unspecified (principal); I08.1 Rheumatic disorders of both mitral and tricuspid valves